=== PATIENT | male | born 1985 | race Caucasian/White ===

== ENCOUNTER 2018-09-17 18:13 | Emergency (ER) | payer MEDICAID ==
[2018-09-17] MEDS ORDERED: LORazepam 2 MG/ML INJ IM ONE (18:54)
[2018-09-17] MEDS ORDERED: CHLORDIAZEPOXIDE 25MG PREPK#6 BTL TAKEHOME ONE (18:54)
[2018-09-17] MEDS ORDERED: chlordiazePOXIDE 25 MG CAP PO ONE (18:54)
--- NOTE | 2018-09-17 19:20 | EDPHY ---
H & P Stated Complaint: med clear for [facility] Time Seen by Provider: 09/17/18 18:27 HPI/ROS: Chief complaint: Medical clearance to go to detox History of present illness: This is a 33-year-old male who presents to the emergency department requesting medical clearance so he can go to detox at the [facility]. He states he has a history of alcohol abuse. He drinks liquor on a daily basis. His last drink was 5 hr ago. He states he currently feels well, but is ready to detox. He denies any signs or symptoms including no abdominal pain, no nausea, vomiting, diarrhea. No tremulousness. No headache. He has never gone through withdrawal before. Review of systems: A 10 point review of systems was obtained and other than described above was negative. - Personal History Current Tetanus/Diphtheria Vaccine: Yes Current Tetanus Diphtheria and Acellular Pertussis (TDAP): Yes - Medical/Surgical History Other PMH: bilateral hip osteoarthritis, g/bypass 2015, tonsilectomy, COPD/ Asthma - Social History Smoking Status: Current every day smoker - Physical Exam Exam: General Appearance: Alert, nontoxic, easily conversant. Eyes: Pupils equal and round no pallor or injection. ENT, Mouth: Mucous membranes moist. Respiratory: There are no retractions, lungs are clear to auscultation. Cardiovascular: Regular rate and rhythm. Gastrointestinal: Abdomen is soft and non tender, no masses, bowel sounds normal. Neurological: Alert and oriented x4. Strength and sensation intact and symmetrical. No tremulousness. Skin: Warm and dry, no rashes. Musculoskeletal: Neck is supple non tender. Extremities are symmetrical, full range of motion. Psychiatric: Patient is oriented X 3, there is no agitation. Constitutional: Initial Vital Signs Temperature (C) 36.7 C 09/17/18 18:20 Heart Rate 132 H 09/17/18 18:20 Respiratory Rate 16 09/17/18 18:20 Blood Pressure 132/101 H 09/17/18 18:20 O2 Sat (%) 90 L 09/17/18 18:20 O2 Delivery Mode Room Air Allergies/Adverse Reactions: No Known Allergies Allergy (Unverified 09/17/18 18:17) Home Medications: Medication Instructions Recorded Allopurinol 09/17/18 Ambien 09/17/18 Citalopram 09/17/18 Horizant 09/17/18 Meloxicam 09/17/18 Multivitamin 09/17/18 POTASSIUM Cl 10 MEQ (PREMIX) 09/17/18 Percocet 10-325 mg Tablet 09/17/18 Medical Decision Making ED Course/Re-evaluation: Patient seen under the supervision of my secondary supervising physician Dr. Nikia Burgos. Patient presents requesting medical clearance to go to the [facility]. He is nontoxic. He is asymptomatic. His vital signs do show him to be tachycardic and mildly hypertensive. He has declined an IV. He is given 1 mg of Ativan IM. He is given 50 mg of Librium orally. He has tolerated this well with improvement in vital signs. He is taking oral challenges without difficulty. I believe he is appropriate for [facility] detox. He is sent with a Librium prepack. Return precautions are given. Patient voiced understanding and agreement with plan. Differential Diagnosis: Included but not limited to alcohol intoxication, alcohol withdrawal, polysubstance abuse - Data Points Medications Given: Discontinued Medications Chlordiazepoxide (Librium 25 Mg Prepack#6) 1 btl TAKEHOME EDNOW ONE Stop: 09/17/18 18:55 Last Admin: 09/17/18 19:03 Dose: 1 btl Chlordiazepoxide HCl (Librium) 50 mg PO EDNOW ONE Stop: 09/17/18 18:55 Last Admin: 09/17/18 19:03 Dose: 50 mg Lorazepam (Ativan Injection) 1 mg IM EDNOW ONE Stop: 09/17/18 18:55 Last Admin: 09/17/18 19:02 Dose: 1 mg Departure - Departure Disposition: Other Psych, Not [facility] Clinical Impression: Alcohol abuse Condition: Good Instructions: Chlordiazepoxide/Clidinium (By mouth), Abuse of Alcohol (ED) Additional Instructions: Follow-up with a primary care doctor for continued evaluation and care If symptoms worsen or new symptoms develop return to the emergency room for recheck Referrals: NONE *PRIMARY CARE P,. [Primary Care Provider] - As per Instructions [facility],. [Clinic] - As per Instructions
[2018-09-17 19:36] VITALS: BP 133/100
== END 2018-09-17 19:48 ==
DX: F10.10 Alcohol abuse, uncomplicated (principal)
CPT/HCPCS: J2060